=== PATIENT | male | born 1965 | race American Indian/Alaskan Native ===

== ENCOUNTER 2018-12-23 08:37 | Emergency (ER) | payer SELFPAY ==
[2018-12-23] MEDS ORDERED: KETOROLAC 30 MG/1 ML INJ IM ONE (09:47)
[2018-12-23] MEDS ORDERED: cloNIDine 0.1 MG TAB PO ONE (09:47)
[2018-12-23] MEDS ORDERED: amLODIPine 5 MG TAB PO ONE (09:47)
--- NOTE | 2018-12-23 09:49 | Emergency Department Report ---
ED Headache HPI - General Chief Complaint: Headache Stated Complaint: HEADACHE PAIN Time Seen by Provider: 12/23/18 09:09 Source: patient, RN notes reviewed Exam Limitations: no limitations - History of Present Illness Initial Comments: This is a 53-year-old -H[place] male who presents to the emergency room with a headache for a couple of days intermittently. Past medical history of hypertension and migraines. Patient reports headache is on the left temporal side and last for 4-6 hours. He reports pain as a throbbing intensity. Patient states he has been off blood pressure medicine for a couple years. He denies visual changes, nausea or vomiting, dizziness, weakness, chest pain, or palpitations. Timing/Duration: 4-6 hours Quality: severe, throbbing Head Injury Location: temporal (left) Recent Head Trauma: occasional headaches Modifying Factors: worse with: cold therapy, exposure to light, immobilization, medication, movement, rest, other Associated Symptoms: denies symptoms Allergies/Adverse Reactions: Allergies No Known Allergies Allergy (Unverified 12/23/18 08:42) Home Medications: Ambulatory Orders Amlodipine Besylate [Norvasc] 5 mg PO DAILY #30 tablet 12/23/18 hydroCHLOROthiazide [Hctz] 12.5 mg PO QDAY #30 capsule 12/23/18 ED Review of Systems ROS: Stated complaint: HEADACHE PAIN Other details as noted in HPI Constitutional: denies: chills, fever ENT: denies: ear pain, throat pain Respiratory: denies: cough, shortness of breath, wheezing Cardiovascular: denies: chest pain, palpitations Skin: denies: rash, lesions Neurological: headache. denies: weakness, paresthesias Psychiatric: denies: anxiety, depression ED Past Medical Hx - Past Medical History Previous Medical History?: Yes Hx Hypertension: Yes - Surgical History Past Surgical History?: No - Social History Smoking Status: Former Smoker Substance Use Type: Alcohol, Marijuana - Medications Home Medications: Home Medications Medication Instructions Recorded Confirmed Last Taken Type Amlodipine Besylate [Norvasc] 5 mg PO DAILY #30 tablet 12/23/18 Unknown Rx hydroCHLOROthiazide [Hctz] 12.5 mg PO QDAY #30 capsule 12/23/18 Unknown Rx ED Physical Exam - General Limitations: No Limitations General appearance: alert, in no apparent distress - Respiratory Respiratory exam: Present: normal lung sounds bilaterally. Absent: respiratory distress - Cardiovascular Cardiovascular Exam: Present: regular rate, normal rhythm. Absent: systolic murmur, diastolic murmur, rubs, gallop - GI/Abdominal GI/Abdominal exam: Present: soft, normal bowel sounds - Neurological Exam Neurological exam: Present: alert, oriented X3 - Psychiatric Psychiatric exam: Present: normal affect, normal mood - Skin Skin exam: Present: warm, dry, intact, normal color. Absent: rash ED Course Vital Signs 12/23/18 12/23/18 08:47 09:55 Temperature 97.6 F Pulse Rate 71 65 Respiratory 20 Rate Blood Pressure 195/92 170/92 O2 Sat by Pulse 98 Oximetry ED Medical Decision Making - Medical Decision Making Patient is stable and seen by me. Blood pressure elevated. History of HTN and off medication for several years. Given Toradol and clonidine while in the ER. Blood pressure 170/92 and reports feeling better. Start amlodipine 5 mg by mouth daily and hydrochlorothiazide 12.5 mg by mouth daily. Follow up with PCP in 1 week. Instructed to take NSAIDs for headache at start of symptoms. Discussed plan with patient and agreed to plan. No further questions noted by the patient. Discharged home in stable condition. Follow up with PCP in 1 week. Critical care attestation.: If time is entered above; I have spent that time in minutes in the direct care of this critically ill patient, excluding procedure time. ED Disposition Clinical Impression: Headache Qualifiers: Headache type: tension-type Headache chronicity pattern: acute headache Intractability: not intractable Qualified Code(s): G44.209 - Tension-type headache, unspecified, not intractable Hypertension Qualifiers: Hypertension type: essential hypertension Qualified Code(s): I10 - Essential (primary) hypertension Disposition: DC-01 TO HOME OR SELFCARE Is pt being admited?: No Condition: Stable Instructions: Hypertension (ED), Tension Headache (ED) Additional Instructions: Encourage stop smoking to reduce cardiovascular risk. Moderate caffeine consumption is acceptable. Begin and maintain aerobic exercise, with a goal of at least 30 minutes of moderate intensity, dynamic aerobic exercise (walking, jogging, cycling, or swim barrie) 5 days per week to total 150 minutes as tolerated or recommended by a physician. Take medication daily as prescribed. Follow up with Primary Care Provider in 1 week. Prescriptions: hydroCHLOROthiazide [Hctz] 12.5 mg PO QDAY #30 capsule Amlodipine Besylate [Norvasc] 5 mg PO DAILY #30 tablet Referrals: [facility] [Outside] - 3-5 Days [facility] [Outside] - 3-5 Days [facility] [Outside] - 3-5 Days Forms: Work/School Release Form(ED) Time of Disposition: 11:06
[2018-12-23 10:08] VITALS: BP 170/92
== END 2018-12-23 11:18 | disposition home or self-care (01) ==
LOC: ED 08:37
DX: R51 Headache (principal); I10 Essential (primary) hypertension; F12.10 Cannabis abuse, uncomplicated; Z87.891 Personal history of nicotine dependence
CPT/HCPCS: 96372; 99282; J1885

== ENCOUNTER 2021-10-14 12:01 | Emergency (ER) | payer OTHER ==
[2021-10-14] MEDS ORDERED: IBUPROFEN 600 MG TAB PO ONE (20:41)
[2021-10-14] MEDS ORDERED: ACETAMINOPHEN 500 MG TAB PO ONE (20:41)
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
[2021-10-14 21:44] VITALS: BP 199/98
== END 2021-10-14 22:38 | disposition home or self-care (01) ==
LOC: ED 12:01
DX: S39.012A Strain of muscle, fascia and tendon of lower back, initial encounter (principal); M62.830 Muscle spasm of back; E11.9 Type 2 diabetes mellitus without complications; Z87.891 Personal history of nicotine dependence; F10.20 Alcohol dependence, uncomplicated; F12.90 Cannabis use, unspecified, uncomplicated; V89.2XXA Person injured in unspecified motor-vehicle accident, traffic, initial encounter; Y93.89 Activity, other specified; Y92.89 Other specified places as the place of occurrence of the external cause; Y99.8 Other external cause status
CPT/HCPCS: 72100; 99283